=== PATIENT | female | born 1985 | race Caucasian/White ===

== ENCOUNTER 2024-09-22 15:48 | Emergency (ER) | payer BC ==
[~2024-09-22] VITALS: Ht 152.4 cm; Wt 49.9 kg
[2024-09-22 16:35] LABS: APPEARANCE,URINE CLEAR (CLEAR); BLOOD, URINE Negative Ery/uL (NEGATIVE); LEUKOCYTE ESTERASE ,URINE Negative (NEGATIVE); UGLUCOSE Negative (NEGATIVE)
[2024-09-22 16:36] LABS: NITRITE, URINE NEGATIVE (NEGATIVE); PREGNANCY TEST URINE QUAL NEGATIVE (NEGATIVE)
[2024-09-22 16:41] LABS: PLATELET COUNT (AUTO) 238 K/uL (150-450); RED BLOOD CELL COUNT(AUTO) 4.33 MIL/uL (4.0-5.2); RED CELL DISTRIBUTION WIDTH 13.5 % (11.5-15.0); WHITE BLOOD COUNT (AUTO) 8.2 K/uL (4.3-11.0)
[2024-09-22 16:52] LABS: CALCIUM, SERUM 9.1 mg/dL (8.5-10.1); CREATININE 0.6 mg/dL (0.6-1.3); SODIUM SERUM 138.0 mmol/L (136-145); UREA NITROGEN, BLOOD 8.0 mg/dL (7-18)
[2024-09-22 16:58] LABS: ASPARTATE AMINOTRANSFERASE 9.0 U/L (15-37); TOTAL PROTEIN, SERUM 7.3 g/dL (6.4-8.2)
[2024-09-22 17:31] VITALS: BP 116/71; TEMP 98.3; O2SAT 99
== END 2024-09-22 17:31 | disposition home or self-care (01) ==
LOC: ER 16:06
DX: R42 Dizziness and giddiness (principal); R11.0 Nausea; R07.89 Other chest pain; R51.9 Headache, unspecified; R55 Syncope and collapse; R00.2 Palpitations; H53.8 Other visual disturbances; N64.4 Mastodynia; E16.2 Hypoglycemia, unspecified
CPT/HCPCS: 36415; 71045-TC; 80053-TC; 84703-TC; 85025-TC

== ENCOUNTER 2024-12-04 20:05 | Emergency (ER) | payer BC ==
[~2024-12-04] VITALS: Ht 152.4 cm; Wt 46.7 kg
[2024-12-04] MEDS: IV NS 0.9% 1,000 ML BAG IV ONE (21:18)
[2024-12-04 21:21] LABS: PLATELET COUNT (AUTO) 247 K/uL (150-450); RED BLOOD CELL COUNT(AUTO) 4.46 MIL/uL (4.0-5.2); RED CELL DISTRIBUTION WIDTH 13.4 % (11.5-15.0); WHITE BLOOD COUNT (AUTO) 6.5 K/uL (4.3-11.0)
[2024-12-04] MEDS ORDERED: KETOROLAC TROMETHAMINE 15 MG/ML VIAL ONE (21:21)
[2024-12-04] MEDS: KETOROLAC TROMETHAMINE 15 MG/ML VIAL IV ONE (21:25)
[2024-12-04 21:28] LABS: CALCIUM, SERUM 8.7 mg/dL (8.5-10.1); CREATININE 0.7 mg/dL (0.6-1.3); SODIUM SERUM 141.0 mmol/L (136-145); UREA NITROGEN, BLOOD 9.0 mg/dL (7-18)
[2024-12-04] MEDS ORDERED: IBUP-1490 PO (21:34)
[2024-12-04] MEDS ORDERED: METO-295 PO (21:34)
[2024-12-04 22:47] VITALS: BP 112/65; TEMP 98.5; O2SAT 100
== END 2024-12-04 22:48 | disposition home or self-care (01) ==
LOC: ER 20:06
DX: R51.9 Headache, unspecified (principal); H53.8 Other visual disturbances
CPT/HCPCS: 99283; 96374; 96361; 85025; 80048; 36415; J1885; J7030